=== PATIENT | female | born 1965 | race Caucasian/White ===

== ENCOUNTER 2019-01-07 10:09 | Inpatient (IN) ==
[2019-01-07] MEDS ORDERED: NICODERM PATCH TD PRN (10:41)
[2019-01-07] MEDS ORDERED: MAALOX PLUS LIQUID PO PRN (10:41)
[2019-01-07] MEDS ORDERED: MOTRIN PO PRN (10:41)
[2019-01-07] MEDS ORDERED: SENOKOT PO PRN (10:41)
[2019-01-07] MEDS ORDERED: PHENOBARBITAL IV PRN (10:41)
[2019-01-07] MEDS ORDERED: LIBRIUM PO PRN (10:41)
[2019-01-07] MEDS ORDERED: ROBAXIN PO PRN (10:41)
[2019-01-07] MEDS ORDERED: ZOFRAN IV PRN (10:41)
[2019-01-07] MEDS ORDERED: ZOFRAN ODT PO PRN (10:41)
[2019-01-07] MEDS ORDERED: SINEMET 25/100 PO PRN (10:41)
[2019-01-07] MEDS ORDERED: DULCOLAX PR PRN (10:41)
[2019-01-07] MEDS ORDERED: ATARAX PO PRN (10:41)
[2019-01-07] MEDS ORDERED: SEROQUEL PO PRN (10:41)
[2019-01-07] MEDS ORDERED: IMODIUM PO PRN (10:41)
[2019-01-07] MEDS ORDERED: D5W 1,000 ML IV PRN (10:41)
[2019-01-07] MEDS ORDERED: DESYREL PO PRN (10:41)
[2019-01-07] MEDS ORDERED: BENTYL PO PRN (10:41)
[2019-01-07] MEDS ORDERED: SUBOXONE 2 MG/0.5 MG FILM SL SCH (11:00)
[2019-01-07 11:45] LABS: HEMATOCRIT 34.6 % (37.0-47.0); HEMOGLOBIN 10.5 g/dL (12.0-16.0); MCH 23.8 PG (27-31); MCHC 30.3 g/dL (33-37); MCV 78.3 FL (81-99); MPV 9.2 FL (7.4-10.4); RBC 4.42 XMIL (4.2-5.4); RDW 18.6 % (11.5-14.5); WBC 7.41 X1000 (4.8-10.8)
[2019-01-07 11:59] LABS: INR 1.15; PROTIME 15.3 Seconds (11.0-16.0)
[2019-01-07] MEDS ORDERED: TUBERSOL ID ONE (12:00)
[2019-01-07 12:09] LABS: AMYLASE 77 U/L (20-200); LIPASE 39 U/L (13-60)
[2019-01-07 12:12] LABS: AGAP 10; ALKALINE PHOSPHATASE 112 U/L (32-104); BUN 9 mg/dL (8-22); CALCIUM 9.2 mg/dL (8.8-10.2); CHLORIDE 100 mmol/L (98-107); COSMO 271; CREATININE 0.6 mg/dL (0.5-0.9); ESTIMATED GFR > 60; GLUCOSE 96 mg/dL (70-104); GOT 16 U/L (10-30); GPT 5 U/L (10-36); POTASSIUM 4.5 mmol/L (3.5-5.1); SODIUM 136 mmol/L (136-145); TCO2 27 mmol/L (25-35); TOTAL PROTEIN 8.1 g/dL (6.3-8.3)
[2019-01-07 13:51] LABS: UR AMPHETAMINES QUAL PRESUMPTIVE POSITIVE (NONE DETECT); UR BARBITUATES QUAL NONE DETECTED (NONE DETECT); UR BENZODIAZEPIN QUAL PRESUMPTIVE POSITIVE (NONE DETECT); UR COCAINE QUAL NONE DETECTED (NONE DETECT)
[2019-01-07 13:52] LABS: UR CANNABINOIDS QUAL NONE DETECTED (NONE DETECT); UR METHADONE QUAL NONE DETECTED (NONE DETECT); UR METHAMPHETAMINE QUAL PRESUMPTIVE POSITIVE (NONE DETECT); UR OPIATES QUAL NONE DETECTED (NONE DETECT); UR OXYCODONE QUAL NONE DETECTED (NONE DETECT); UR PCP QUAL NONE DETECTED (NONE DETECT); UR PROPOXYPHENE QUAL NONE DETECTED (NONE DETECT); UR TCA QUAL NONE DETECTED (NONE DETECT)
[2019-01-07] MEDS: SUBOXONE 2 MG/0.5 MG FILM SL SCH (14:24)
[2019-01-07] MEDS ORDERED: CALMOSEPTINE OINTMENT TOP ONE (14:38)
[2019-01-07] MEDS ORDERED: CALMOSEPTINE OINTMENT TOP PRN (18:53)
[2019-01-08] MEDS: SUBOXONE 2 MG/0.5 MG FILM SL SCH ×2 (04:12→15:14)
[2019-01-08 05:42] LABS: URINE SOURCE VOIDED
[2019-01-08 05:44] LABS: BILIRUBIN URINE NEGATIVE (NEGATIVE); BLOOD URINE NEGATIVE (NEGATIVE); CLARITY CLEAR (CLEAR); COLOR YELLOW; GLUCOSE URINE NEGATIVE (NEGATIVE); KETONE URINE NEGATIVE (NEGATIVE); LEUKOCYTES URINE TRACE (NEGATIVE); NITRITE URINE NEGATIVE (NEGATIVE); PROTEIN URINE NEGATIVE (NEGATIVE); UROBILINOGEN URINE NORMAL
[2019-01-08 05:55] LABS: URINE EPITHELIAL CELLS <10 /HPF (<10); URINE WBC <10 /HPF (<10)
[2019-01-08] MEDS: PROTONIX PO SCH (06:22)
[2019-01-08] MEDS: TYLENOL PO PRN (06:27)
[2019-01-08] MEDS ORDERED: VITAMIN B-1 PO SCH (09:00)
[2019-01-08] MEDS ORDERED: FOLIC ACID PO SCH (09:00)
[2019-01-08] MEDS ORDERED: THERA M PLUS PO SCH (09:00)
--- NOTE | 2019-01-08 19:25 | PROGRESS NOTE ---
DATE: 01/08/2019 SUBJECTIVE: Patient overall notes that she still feels terrible, still having muscle aches and myalgias. Denies any tremors or palpitations. Denies any fevers or chills. PHYSICAL EXAMINATION: Vital Signs: Reviewed and stable. General: She is awake, alert, oriented. She is in no current respiratory distress. HEENT: Normocephalic. Neck: Supple. CARDIOVASCULAR: Regular rate. Chest: Clear. Abdomen: Soft, nondistended. Extremities: Moves all extremities. ASSESSMENT: 1. Nausea/vomiting with abdominal pain. 2. Myalgias. 3. Paresthesias. 4. Paroxysmal sweating. 5. Opiate abuse, withdrawal, and stabilization. PLAN: We will continue patient in the hospital. Continue Suboxone. Continue to follow. Further orders as needed. cc: Jeevan Benavides MD
[2019-01-09] MEDS: SUBOXONE 2 MG/0.5 MG FILM SL SCH (02:58)
[2019-01-09] MEDS: PROTONIX PO SCH (06:14)
[2019-01-09] MEDS: TYLENOL PO PRN (06:17)
[2019-01-09 08:07] VITALS: BP 127/85
[2019-01-09] MEDS ORDERED: ELIQUIS PO SCH (09:00)
[2019-01-09] MEDS ORDERED: SUBOXONE 8 MG/2 MG FILM SL SCH (09:00)
[2019-01-09] MEDS ORDERED: CELEXA PO SCH (09:00)
--- NOTE | 2019-01-26 17:34 | HISTORY AND PHYSICAL ---
CHIEF COMPLAINT: Nausea and vomiting. HISTORY OF PRESENT ILLNESS: The patient is a 53-year-old female who presented to [facility] secondary to nausea, vomiting, abdominal pain and muscle aches. She states she has been having skin crawling. She has been using and abusing opiates. She has been attempting to stop, but her withdrawal symptoms become too severe and she has to start using again to alleviate said symptoms. SOCIAL HISTORY: She is 53. She is a . She is on disability, lives at home in [place]. PAST MEDICAL HISTORY: She has a history of MRSA after a back surgery, history of breast cancer, chronic acid reflux, history of hepatitis C but has not been able to receive treatment yet, history of bipolar depression and borderline personality disorder, recurrent pancreatitis, history of blood clots. MEDICATIONS: 1. Celexa 20. 2. Eliquis 5 twice a day. 3. Doxycycline twice a day due to her recent MRSA. 4. Neurontin 300 mg 3 times a day. 5. Omeprazole 400. 6. Potassium 10. 7. Lasix 40. 8. Mobic 7.5. ALLERGIES: No known drug allergies. REVIEW OF SYSTEMS: CINA score is 8 secondary to nausea, vomiting, cramping, abdominal pain, frequent myalgias, restlessness and mild diaphoresis. Denies any chest pains. Denies any headaches, blurry vision or change in vision. Denies any focalized numbness, tingling or weakness in her extremities. Denies any dysuria, frequency, urgency, constipation, melena or hematochezia. Denies skin rashes, weight loss or weight gain. SUBSTANCE ABUSE HISTORY: The patient was in [facility] in 2012, had been going to Dr. Jackson for Suboxone outpatient treatment. The patient states she was dismissed from her Suboxone clinic while she was in the hospital being treated for MRSA. She states since then she has been buying whatever she could off the street. She started drinking alcohol at age 16, currently drinks occasionally. Started marijuana at age 13. Currently smokes occasionally. Started methamphetamine at age 32, currently still uses occasionally. Last use, however, was in 09/2018. Started cocaine at 22, has not used in a long time. Started opiates at age 20. Currently she has been attempting to buy Suboxone off the street to take up to 8 mg twice daily if possible. FAMILY HISTORY: Noncontributory. PHYSICAL EXAMINATION: VITAL SIGNS: Reviewed and stable. The patient is awake, alert and oriented. She is in no current respiratory distress. She is pleasant to talk with but in obvious acute withdrawal. HEENT: Normocephalic, atraumatic. MEME. NECK: Supple. No JVD. CARDIOVASCULAR: Regular rate. No murmurs. CHEST: Clear. Nonlabored. ABDOMEN: Soft, nondistended. EXTREMITIES: Moves all extremities. NEUROLOGIC: No focal changes. SKIN: Warm and dry. No rashes. ASSESSMENT: 1. Nausea and vomiting. 2. Abdominal pain. 3. Myalgias. 4. Paresthesias. 5. Alcohol use occasionally. 6. Opiate abuse withdrawal and admit for stabilization. PLAN: We will continue the patient in the hospital, place her on Suboxone. We will begin counseling. We will continue to follow and treat symptomatically. We will continue her home medications. cc: Jeevan Benavides MD
--- NOTE | 2019-01-26 21:32 | DISCHARGE SUMMARY ---
ADMISSION DATE: 01/07/2019 DISCHARGE DATE: 01/09/2019 DISCHARGE DIAGNOSES: 1. Nausea, vomiting. 2. Abdominal pain. 3. Myalgias. 4. Paresthesias. 5. Paroxysmal sweating. 6. Opiate abuse, withdrawal and stabilization. 7. Bipolar with borderline personality disorder. CONSULTATIONS: None. PROCEDURES: None. BRIEF HOSPITAL COURSE: The patient is a 53-year-old female who presented to [facility] program secondary to nausea, vomiting, abdominal pain, opiate abuse, withdrawal symptoms. She was placed in the hospital, placed on Suboxone. Did quite well. On discharge, she is awake, alert. She is in no distress overall. Notes that she is feeling better than she has in several weeks. States that overall her withdrawal symptoms have improved. DISPOSITION: Patient will be discharged home. She will continue to follow up with treatment facility of choice. Discussed with her that she needs to avoid all persons, places, which she has been using and abusing in the past. She needs outpatient life counseling as well as drug counseling. TIME SPENT: Greater than 30 minutes was spent in total care. cc: Jeevan Benavides MD
== END 2019-01-09 10:15 | disposition home or self-care (01) | DRG 897 ==
LOC: P.DIRADM 10:11 → P.MEDSURG 10:28
PROVIDERS: ADMIT Family Medicine; ATTEND Family Medicine
CPT/HCPCS: 80053; 80104; 80301; 80305; 80307; 80320; 81001; 82055; 82150; 83690; 85027; 85610; 86580; 99999; A9270; G0431; G0434; G0477; G0480; G6040